=== PATIENT | female | born 1930 | race Caucasian/White ===

== ENCOUNTER 2017-03-29 00:35 | Day surgery (SDC) | payer MEDICARE ==
[2017-03-29] VITALS (10 sets, daily range): BP systolic 134–166; BP diastolic 69–92; PULSE 64–94; RESP 13–20; O2SAT 96–100
[~2017-03-29] VITALS: Ht 162.6 cm; Wt 103.6 kg
[~2017-03-29 00:35] MED LIST: AMIO200T PO; FURO40TA4 PO; LEVO25TA5 PO; WARF2TAB7 PO
[2017-03-29] MEDS ORDERED: fentaNYL PF 50 mCg/mL 5 mL Inj IV PRN (06:00)
[2017-03-29] MEDS ORDERED: 0.9% Sodium Chloride 1,000 ML IV SCH (06:00)
[2017-03-29] MEDS ORDERED: Methohexital 10 mg/mL 50 mL Inj IV ONE (06:00)
--- NOTE | 2017-03-29 13:37 | NUR ---
Admit JONATHAN ADmitted to [facility] about 1245. VSS. Denies pain. INR 2.7. Tele Afib. See EMR for further info and assessment. Procedure and recovery reviewed and verbalizes understanding. Awaiting MD.
[2017-03-29] MEDS ORDERED: Flumazenil 0.1 mg/mL 5 mL Inj IV ONE (13:43)
[2017-03-29] MEDS ORDERED: Atropine 1 mg/10 mL (Code) Syringe ONE (13:43)
[2017-03-29] MEDS ORDERED: Methohexital 10 mg/mL 50 mL Inj ONE (13:43)
--- NOTE | 2017-03-29 14:46 | PROCED ---
[address] [address] PROCEDURE NOTE PATIENT: SUMAN MARCIAL : 1930 MR#: [id number] ADMIT: 03/29/2017 JOB ID: [id number] DATE OF SERVICE: 03/29/2017 POSTOPERATIVE DIAGNOSIS(ES): Persistent atrial fibrillation. PREOPERATIVE DIAGNOSIS(ES): SURGEON: Rozina Brown MD PATIENT PRESENTATION: The patient is a delightful 86-year-old woman with persistent AFIB on warfarin for stroke prevention. PROCEDURE: Following informed consent, the patient was sedated with 1 mg of Versed and 40 mg of Brevital. After initiation of adequate sedation, 200 joules of DC cardioversion synchronized energy was delivered. Normal sinus rhythm was restored. COMPLICATIONS: No complications in the immediate postprocedure. PLAN: We will continue current medications and add Toprol-XL 25 mg daily to her current medications. Thank you very much for the opportunity to evaluate her. She will follow up in clinic in two weeks. All questions were answered.
--- NOTE | 2017-03-29 15:22 | NUR ---
Discharge instructions reviewed with patient and her son. She is discharged via wheelchair to car, her son is attendance and will be driving her home.
== END 2017-03-29 23:59 | disposition home or self-care (01) ==
LOC: SOUO 00:35
PROVIDERS: ATTEND Internal Medicine
DX: I48.1 Persistent atrial fibrillation (principal); I48.92 Unspecified atrial flutter; Z79.01 Long term (current) use of anticoagulants; Z79.899 Other long term (current) drug therapy; E03.9 Hypothyroidism, unspecified; I10 Essential (primary) hypertension
CPT/HCPCS: 92960; 93005; 99152; J2250; J7030